=== PATIENT | female | born 1965 | race Caucasian/White ===

== ENCOUNTER → 2020-09-08 | Outpatient (CLI) | payer BC, OTHER ==
[~2020-09-08] MED LIST: NORCO 5-325 TA1 EACH PO; ZOFRAN ODT 4 MG4 MG SL
== END ==
LOC: CT 09:09
DX: R19.7 Diarrhea, unspecified (principal); N20.0 Calculus of kidney
CPT/HCPCS: 36415; 82565; Q9967

== ENCOUNTER 2021-01-22 10:51 | Emergency (ER) | payer BC, OTHER ==
[2021-01-22 11:42] LABS: HEMOGLOBIN 14.1 gm/dl (12.3-15.3); RED BLOOD COUNT 4.9 M/UL (4.00-5.10)
[2021-01-22 12:13] LABS: BUN/CREATININE RATIO 25 (0-10)
== END 2021-01-22 15:24 | disposition home or self-care (01) ==
LOC: ER1 10:51
PROVIDERS: Physician Assistant
DX: R07.89 Other chest pain (principal); E11.9 Type 2 diabetes mellitus without complications; I10 Essential (primary) hypertension; J44.9 Chronic obstructive pulmonary disease, unspecified; Z90.49 Acquired absence of other specified parts of digestive tract; Z79.01 Long term (current) use of anticoagulants; Z79.899 Other long term (current) drug therapy; Z79.4 Long term (current) use of insulin
CPT/HCPCS: 71045; 80053; 82550; 82553; 83874; 84484; 85025; 85379; 93005; 99285

== ENCOUNTER → 2021-09-19 | Outpatient (CLI) | payer BC, OTHER | LOC: SLEEP 09-11 15:26 | DX: G47.33 Obstructive sleep apnea (adult) (pediatric) (principal); J45.909 Unspecified asthma, uncomplicated | CPT/HCPCS: 95810 ==